=== PATIENT | female | born 1980 | race American Indian/Alaskan Native ===

== ENCOUNTER 2021-02-09 09:07 | Day surgery (SDC) | payer OTHER ==
[2021-02-09] MEDS ORDERED: LACTATED RINGERS 1,000 ML IV SCH (11:00)
[2021-02-09] MEDS ORDERED: ceFAZolin/STERILE WATER 2 GM/20 ML SYRINGE IV NR (11:00)
[2021-02-09] MEDS ORDERED: ONDANSETRON 4 MG/2 ML INJ IV PRN (11:16)
[2021-02-09] MEDS ORDERED: HYDROmorphone 1 MG/1 ML INJ IV PRN ×2 (11:16)
[2021-02-09] MEDS ORDERED: MAGNESIUM OXIDE 400 MG TAB PO NR (11:16)
--- NOTE | 2021-02-09 11:16 | History and Physical Report ---
History of Present Illness Date of examination: 02/09/21 Date of admission: 02/09/21 Chief complaint: Heavy periods, pelvic pains x 3yrs. History of present illness: 13-15 weeks sized fibroid uterus. all vag deliveries. Desires no further pregnancies. Has an IUD in utero. Past History Past Medical History: hypertension, deep vein thrombosis Past Surgical History: no surgical history [employer] History: fibroids Medications and Allergies Allergies Allergy/AdvReac Type Severity Reaction Status Date / Time No Known Allergies Allergy Unverified 02/09/21 09:19 Active Meds: Active Medications Cefazolin Sodium (Cefazolin/Sterile Water 2 Gm/20 Ml Syringe) 2 gm IV PREOP NR Stop: 02/09/21 23:59 Lactated Ringer's (Lactated Ringers) 1,000 mls @ 100 mls/hr IV DIRECT STANISLAV Review of Systems All systems: negative - Physical Exam Breasts: Positive: deferred Cardiovascular: Normal S1, Normal S2 Lungs: Positive: Normal air movement Abdomen: Positive: normal appearance, soft, mass. Negative: tenderness Genitourinary (Female): Positive: normal external genitalia, normal perenium Vulva: both: normal Vagina: Positive: normal moisture. Negative: discharge Cervix: Negative: lesion, discharge Uterus: Positive: enlarged Adnexa: both: normal Anus/Rectum: Positive: normal perianal skin, heme negative. Negative: rectal mass, hemorrhoids Extremities: Positive: normal Deep Tendon Reflex Grade: Normal +2 Results All other labs normal. Assessment and Plan - Patient Problems (1) Uterine fibroid Current Visit: Yes Status: Acute (2) Abnormal uterine bleeding (AUB) Current Visit: Yes Status: Acute Plan to address problem: For LAVH, possible ADELIA with gurjit salpingectomies.
--- NOTE | 2021-02-09 11:17 | Anesthesia Day of Surgery ---
Anesthesia Day of Surgery - Day of Surgery Patient Examined: Yes Patient H&P Reviewed: Yes Patient is NPO: Yes
--- NOTE | 2021-02-09 11:18 | Anesthesia Consultation ---
Anesthesia Consult and Med Hx Date of service: 02/09/21 - Airway Anesthetic Teeth Evaluation: Good (BRACES) ROM Head & Neck: Adequate Mental/Hyoid Distance: Adequate Mallampati Class: Class I Intubation Access Assessment: Good - Pre-Operative Health Status ASA Pre-Surgery Classification: ASA2 Proposed Anesthetic Plan: General Nerve Block: TAP if opens - Pulmonary Hx Smoking: No - Cardiovascular System Hx Hypertension: Yes - Gastrointestinal Hx Gastroesophageal Reflux Disease: No - Hematic Hx Sickle Cell Disease: No - Other Systems Hx Obesity: Yes
[2021-02-09] MEDS ORDERED: ACETAMINOPHEN 500 MG TAB PO NR (11:30)
[2021-02-09 11:41] LABS: Hematocrit 29.4 % (30.3-42.9); Hemoglobin 8.4 gm/dl (10.1-14.3); Mean Corpuscular HGB Conc 29 % (30-34); Mean Corpuscular Volume 70 fl (79-97); Platelet Count 288 K/mm3 (140-440); Red Cell Distribution Width 18.3 % (13.2-15.2)
[2021-02-09] MEDS ORDERED: SODIUM CHLORIDE 0.9% 500 ML 500 ML IV ONE (11:51)
[2021-02-09] MEDS ORDERED: CELECOXIB 200 MG CAP PO NR (12:00)
[2021-02-09] MEDS ORDERED: GABAPENTIN 300 MG CAP PO NR (12:00)
[2021-02-09] MEDS ORDERED: propofoL 200 MG/20 ML VIAL IV ONE (12:03)
[2021-02-09 12:04] LABS: Blood Urea Nitrogen 11 mg/dL (7-17); Calcium 8.9 mg/dL (8.4-10.2); Hemolysis Index 6
[2021-02-09] MEDS ORDERED: ePHEDrine SULFATE 50 MG/1 ML INJ ONE (12:07)
[2021-02-09] MEDS ORDERED: fentaNYL 100 MCG/2 ML INJ ONE ×2 (12:11→12:58)
[2021-02-09 12:21] LABS: BUN/Creatinine Ratio 18
[2021-02-09] MEDS: MIDAZOLAM 2 MG/2 ML INJ IV NR ×2 (12:24→12:31)
[2021-02-09] MEDS ORDERED: GLYCOPYRROLATE 0.4 MG/2 ML INJ ONE (12:29)
[2021-02-09] MEDS ORDERED: dexAMETHasone 20 MG/5 ML VIAL ONE (12:29)
[2021-02-09] MEDS ORDERED: SUCCINYLCHOLINE CHLORIDE 200 MG/10 ML INJ MDV ONE (12:29)
[2021-02-09] MEDS ORDERED: NEOSTIGMINE 10MG/10 ML INJ MDV ONE (12:29)
[2021-02-09] MEDS ORDERED: PHENYLEPHRINE/NS 1,000 MCG/10 ML SYRINGE (OR USE) IV ONE (12:29)
[2021-02-09] MEDS ORDERED: ONDANSETRON 4 MG/2 ML INJ ONE ×2 (12:29→19:52)
[2021-02-09] MEDS ORDERED: HYDROmorphone 1 MG/1 ML INJ ONE ×2 (14:05→15:17)
[2021-02-09] MEDS ORDERED: ALBUMIN HUMAN 5% (12.5 GM/250 ML) INJ IV ONE ×2 (14:21→15:09)
[2021-02-09] MEDS ORDERED: SODIUM CHLORIDE 0.9% IRRIG SOLN 2000 ML IR ONE (14:31)
[2021-02-09] MEDS ORDERED: METHYLENE BLUE 50 MG/10 ML AMP ONE (16:24)
--- NOTE | 2021-02-09 16:49 | Operative Report ---
Operative Report Operative Report: Date of surgery: February 09, 2021 Admitting diagnosis: Uterine fibroids, abnormal uterine bleeding Postoperative diagnoses: Same. Procedure: Laparoscopically assisted vaginal hysterectomy, cystoscopy. Surgeon: Kaden Del Valle MD Anesthesiologist: Viraj Murguia MD Test Tube Maker: Erica Ramirez CRNA Anesthesia: Gen. anesthesia EBL: 800 mL Complications: None Findings:Intraperitoneally, the fallopian tubes were noted to have been disrupted at a prior surgical session. There was around metallic clip seen attached family to the anterior surface of the greater omentum. Both ovaries were grossly normal. The uterus was bulky in size. The liver on the undersurface of the diaphragm were grossly normal. There were no other abnormalities observed within the peritoneal cavity. The vulva vagina and cervix were grossly normal. Procedure in details: The patient was taken to the operating room and was given a general anesthesia. The patient was then put in the lithotomy position and prepped in the vulva vagina and abdomen. The drapes were placed. A timeout was done. With the go ahead from the head start coordinator, an indwelling Vera catheter was inserted. The cervix was stabilized with a single-tooth tenaculum forceps and an acorn,. At the navel, a stab incision was made. The Veress needle was inserted, making sure to point the tip of this instrument into the free hollow of the pelvis. The Veress needle was initially aspirated and no blood was drawn. The Veress needle was then flushed through with a small quantity of sterile normal saline without any resistance. The general peritoneal cavity was thereafter insufflated with 3.5 L of carbon dioxide. A 5 mm port with its trocar were i nserted making sure again to point the tip of this instrument towards the free hollow of the pelvis. The laparoscope confirmed successful access to the peritoneal cavity subsequently. 2 additional 5 mm ports were placed one for each flank under guidance with the laparoscope. A general examination of the peritoneal cavity was done. The findings are reported above. The endoscopic ligation was used to excise the remnants of the fallopian tubes from its attachments to the ovaries all the way to the uterine cornua. The broad ligament was then divided from the round ligaments and close to the lateral aspects of the uterus all the way to the top of the cervix. This was done for both sides. The J-hook Bovie was used to thermally coagulate the utero peritoneal flap over the cervix. This allowed the bladder to be displaced distally with the blunt probe. The procedure continued vaginally. The acorn cannula was removed. A circumferential incision was made into the nucleus sharp on the external cervix distal to the palpated reflection of the urinary bladder. The bladder was then bluntly dissected off of the cervix using the Kitner. The anterior colpotomy was easily established allowed and retractors replaced within the opening. The posterior colpotomy was established by cutting into the posterior cul-de-sac with the Dumont's scissors. The blade of the weighted vaginal speculum was placed into the posterior colpotomy. The Enseal was then used to thermally coagulate and divide the remaining attachments of the uterus to the pelvic sidewall. Specimen was removed and secured for histopathology. The vagina was sewn with a running suture of #0 Vicryl having achieved satisfactory hemostasis. The vagina vault was subsequently closed with figure of 8 suture of 0 Vicryl. Cystoscopy was done. The patient was given 50 mg of methylene blue. Both ureteric orifices were seen with urine ejecting from both. The urine was clear. There was no injuries to the bladder wall. Intraperitoneally, there was no extravasation of urine into the peritoneal cavity. There was no bleeding within the peritoneal cavity. The pneumoperitoneum was deflated after inspecting the access points using the laparoscope. All instruments were withdrawn. The 3 stab incisions were sealed with Dermabond. All sponges and instruments were accounted for. There were no complications. The estimated blood loss was [] mL. The patient tolerated the procedure well and was transferred to the recovery room in very good condition.
[2021-02-09] MEDS ORDERED: ENOXAPARIN 40 MG/0.4 ML INJ SUB-Q ONE (17:30)
--- NOTE | 2021-02-09 17:34 | Post Anesthesia Evaluation ---
- Post Anesthesia Evaluation Patient Participated: Yes Airway Patent: Yes Stable Respiratory Function: Yes Nausea/Vomiting: No Temp > 96.8F: Yes Pain Manageable: Yes Adequeate Hydration: Yes Anesthesia Complications: No Block Receding Appropriately: Not Applicable Patient on Ventilator: No
[2021-02-09 18:47] LABS: Hematocrit 32.4 % (30.3-42.9)
[2021-02-09 19:36] VITALS: BP 114/63
== END 2021-02-09 20:45 | disposition home or self-care (01) ==
LOC: OR 09:07
PROVIDERS: ATTEND Obstetrics & Gynecology
DX: N93.8 Other specified abnormal uterine and vaginal bleeding (principal); D25.0 Submucous leiomyoma of uterus; D25.1 Intramural leiomyoma of uterus; D25.2 Subserosal leiomyoma of uterus; N72 Inflammatory disease of cervix uteri; N83.8 Other noninflammatory disorders of ovary, fallopian tube and broad ligament; I10 Essential (primary) hypertension; E66.9 Obesity, unspecified; Z86.718 Personal history of other venous thrombosis and embolism; Z79.899 Other long term (current) drug therapy; Z98.890 Other specified postprocedural states
CPT/HCPCS: 36415; 58554; 80048; 81025; 85014; 85018; 85027; 86850; 86900; 86901; 86920; 88307; J0330; J0690; J1100; J1170; J1650; J1815; J2250; J2370; J2405; J2704; J2710; J3010; J3490; J7120; P9016; P9045; Q9968